=== PATIENT | female | born 1975 | race Caucasian/White ===

== ENCOUNTER → 2022-08-25 | Outpatient (CLI) | payer OTHER, SELFPAY ==
--- NOTE | 2022-08-25 09:57 | BI_ITS ---
MAMMOGRAPHY - BILATERAL SCREENING REASON FOR EXAM: Female, 47 years old. Routine annual screening examination. PERTINENT HISTORY: Non-contributory. TECHNIQUE: Digital bilateral breast betty (3D mammographic acquisition) in the CC and MLO projections. 2-D mediolateral oblique (MLO) and craniocaudad (CC) views of both breasts were obtained. CAD: Full Field Digital Mammography with Computer Added Detection was performed. COMPARISON: None. Baseline examination. FINDINGS: Breast Composition: The breasts are heterogeneously dense, which may obscure small masses. There are no dominant masses or suspicious calcifications. No other significant abnormalities are identified. BI/SCRN MAMM (CAD)W/BETTY BILAT IMPRESSION: Negative screening mammogram. Yearly followup mammogram recommended. (A) ASSESSMENT CATEGORY: BIRADS Category 1: Negative. A letter regarding these results will be sent to the patient by the facility within 30 days. Approximately 10% of breast cancers are not detected by mammography. A normal mammogram should not delay biopsy of a clinically suspicious abnormality. [id number] Electronically Signed: Galdino Gaston MD at 10:48 EDT ,
== END | disposition home or self-care (01) ==
DX: Z12.31 Encounter for screening mammogram for malignant neoplasm of breast (principal)
CPT/HCPCS: 77063; 77067

== ENCOUNTER → 2025-02-02 | Outpatient (CLI) | payer OTHER, SELFPAY ==
--- NOTE | 2025-02-02 09:02 | MRI_ITS ---
PROCEDURE: LOWER EXT JOINT ONLY (ROUTINE) 02/02/2025 REASON FOR EXAM: LATERAL RIGHT KNEE PAIN. TECHNIQUE: Procedure Code: MRILEJ Modality: MR Procedure: LOWER EXT JOINT ONLY (ROUTINE) Multiplanar and multisequence images were obtained without IV contrast administration. COMPARISON: COMPARISON : None provided. FINDINGS: Bone and bone marrow: Mild patellofemoral degenerative changes are seen overall, but small area moderately severe articular cartilage thinning seen at the lateral trochlea. No abnormal osseous signal is seen. Effusion: No joint effusion is seen. No Mcclellan's or popliteal cyst is seen. Soft Tissues: No soft tissue mass is seen. No free or loculated fluid collection is noted. Ligaments and Tendons: Cruciate and collateral ligaments appear intact. Visualized extensor tendons appear intact. Menisci: No meniscal tear is seen. MRI/Lower Ext Joint Only (Routine) IMPRESSION: Patellofemoral degenerative changes, perhaps most prominent in the lateral troc hlea. Reading Location: [place] [id number]
== END | disposition home or self-care (01) ==
LOC: MRI 08:57
PROVIDERS: Referring Provider Family Medicine; Visit Provider Family Medicine
DX: M25.561 Pain in right knee (principal)
CPT/HCPCS: 73721

== ENCOUNTER → 2025-02-03 | Outpatient (CLI) | payer OTHER, SELFPAY ==
--- NOTE | 2025-02-03 09:12 | BI_ITS ---
EXAM: DIAG MAMM W/CAD, UNILAT 02/03/2025 CLINICAL HISTORY: F, Age 49 y/o , ABN MAMM. Abnormal screening mammogram of the right breast. TECHNIQUE: Procedure Code: [id number] Modality: MG Procedure: DIAG MAMM W/CAD, UNILAT. COMPARISON: Prior exam(s) dated prior outside examination dated January 19, 2025.. FINDINGS: TISSUE DENSITY: The breasts are heterogeneously dense, which may obscure small masses. Bilateral Breast Mammographic Findings: Persistent adjacent nodular densities in the lateral retroareolar region of the right breast. Correlation with ultrasound recommended. BI/DIAG MAMM W/CAD, UNILAT IMPRESSION: Persistent adjacent nodular densities in the lateral retroareolar region of the right breast as described. Sonographic correlation recommended. OVERALL FINAL ASSESSMENT BI-RADS 0: INCOMPLETE - NEED ADDITIONAL IMAGING EVALUATION. RECOMMENDATION: Ultrasound Recommended Additional Recommendation none A letter with findings and recommendations will be mailed to the patient. Reading Location: [facility]
--- NOTE | 2025-02-03 10:27 | US_ITS ---
PROCEDURE: BREAST LIMITED UNILATERAL 02/03/2025 REASON FOR EXAM: F, Age 49 y/o , ABN MAMM Abnormal screening mammogram. COMPARISON: Prior mammogram done earlier in the day as well as prior mammogram dated January 26, 2025.. TECHNIQUE: Procedure Code: [id number] Modality: US Procedure: BREAST LIMITED UNILATERAL. Targeted ultrasound of the right breast was performed. FINDINGS: There is a 6 mm x 6 mm x 4 mm cyst at the 8 o'clock position of the breast at 5 cm from the nipple. There is also evidence of a 6 mm x 6 mm x 5 mm cyst at the 8 o'clock position of the breast at 2 cm from the nipple. Incidental note is made of ductal dilatation. US/Breast Limited Unilateral IMPRESSION: The mammographic abnormality corresponds to 2, subcentimeter cysts. Isolated d ilated duct. BI-RADS 2: BENIGN RECOMMENDATION: Routine annual follow-up in 1 Year Reading Location: [facility]
== END | disposition home or self-care (01) ==
LOC: OPBI 09:08
PROVIDERS: Referring Provider Family Medicine; Visit Provider Family Medicine
DX: R92.8 Other abnormal and inconclusive findings on diagnostic imaging of breast (principal)
CPT/HCPCS: 76642; 77061; 77065; G0279